=== PATIENT | male | born 1940 | race Caucasian/White ===

== ENCOUNTER 2019-07-25 07:48 | Day surgery (SDC) | payer MEDICARE, OTHER ==
--- NOTE | 2019-07-25 08:13 | PCM.PREANE ---
Preanesthetic Assessment - Procedure Proposed Procedure: left cataract extraction with IOL - Anesthesia/Transfusion/Family Hx Anesthesia History: No Prior Anesthesia Family History of Anesthesia Reaction: No Transfusion History: No Prior Transfusion(s) Intubation History: Unknown - Review of Systems General: No Symptoms Pulmonary: No Symptoms Cardiovascular: No Symptoms Gastrointestinal: No Symptoms Neurological: No Symptoms Other: Reports: Thyroid Problems - Physical Assessment NPO Status Date: 07/25/19 NPO Status Time: 22:00 Height: 1.83 m Weight: 108.862 kg ASA Class: 2 Mental Status: Alert & Oriented x3 Airway Class: Mallampati = 1 Dentition: Reports: Normal Dentition Thyro-Mental Finger Breadths: 3 Mouth Opening Finger Breadths: 4 ROM/Head Extension: Full Lungs: Clear to Auscultation, Normal Respiratory Effort Cardiovascular: Regular Rate, Regular Rhythm - Allergies Allergies/Adverse Reactions: Allergies Allergy/AdvReac Type Severity Reaction Status Date / Time No Known Allergies Allergy Verified 07/24/19 10:14 - Blood Blood Available: No - Anesthesia Plan Pre-Op Medication Ordered: None - Acknowledgements Anesthesia Type Planned: MAC Pt an Appropriate Candidate for the Planned Anesthesia: Yes Alternatives and Risks of Anesthesia Discussed w Pt/Guardian: Yes Pt/Guardian Understands and Agrees with Anesthesia Plan: Yes PreAnesthesia Questionnaire Cardiovascular History: Reports: Hypertension - HOME MEDS Home Medications: Home Meds Gluc/MSM/C/[place]/[place] [Joint Support Complex Softgel] 1 cap PO DAILY [History] Lactobacillus Acidophilus [Probiotic] 1 cap PO DAILY 07/24/19 [History] Levothyroxine [Synthroid] 100 mcg PO DAILY 07/24/19 [History] Multivit-Min/Folic/Vit K/Lycop [Men's Multivitamin Tablet] 1 tab PO DAILY [History] amLODIPine [Norvasc] 5 mg PO DAILY 07/24/19 [History] - CURRENT (IN HOUSE) MEDS Current Meds: Current Medications Brimonidine Tartrate (Alphagan 0.2% Ophth Soln) 0 ml EYELF ASDIRECTED ROB Stop: 07/25/19 23:00 Cefuroxime Sodium (Zinacef) 0 mg EYELF ASDIRECTED ROB Stop: 07/25/19 23:00 Lidocaine HCl (Xylocaine-Mpf 1%) 1 ml INJECT ASDIRECTED ROB Stop: 07/25/19 23:00 Phenylephrine HCl (Butch-Synephrine 2.5% Ophth Soln) 0 ml EYELF ASDIRECTED ROB Stop: 07/25/19 23:00 Pilocarpine HCl (Pilocar 4% Ophth Soln) 0 ml EYELF ASDIRECTED ROB Stop: 07/25/19 23:00 Polymyxin/Trimethoprim Sulfate (Polytrim Ophth Soln) 0 ml EYELF ASDIRECTED ROB Stop: 07/25/19 23:00 Tetracaine HCl (Tetracaine 0.5% Steri-Unit Dot) 0 ml EYEBOTH ASDIRECTED ROB Stop: 07/25/19 23:00 Tropicamide (Mydriacyl 1% Ophth Soln) 0 ml EYELF ASDIRECTED ROB Stop: 07/25/19 23:00
[2019-07-25] MEDS: Phenylephrine 2.5% Ophth Soln 2 ML Bot EYELF SCH ×6 (08:14→09:43)
[2019-07-25] MEDS: Tetracaine HCl/PF 0.5% 4 ML Bottle EYEBOTH SCH ×5 (08:16→09:50)
[2019-07-25] MEDS: Polymyxin B/Trimethoprim 10 ML Bottle EYELF SCH ×4 (08:17→10:07)
[2019-07-25] MEDS: Lidocaine 1% PF 2 ML SDV INJECT SCH ×2 (08:17→09:51)
[2019-07-25] MEDS: Brimonidine 0.2% Ophth Soln 5 ML Bottle EYELF SCH ×4 (08:17→10:07)
[2019-07-25] MEDS: Cefuroxime 10 MG/ML SYRINGE EYELF SCH ×2 (08:17→10:06)
[2019-07-25] MEDS: Pilocarpine 4% Ophth Soln 15 ML Bot EYELF SCH ×2 (08:17→10:07)
[2019-07-25] MEDS: Tropicamide 1% Ophth Soln 15 ML Bottle EYELF SCH ×4 (08:35→09:26)
== END 2019-07-25 10:18 | disposition home or self-care (01) ==
LOC: JD.SDS 07:48
PROVIDERS: ATTEND Ophthalmology
DX: H25.812 Combined forms of age-related cataract, left eye (principal); H21.81 Floppy iris syndrome; H21.42 Pupillary membranes, left eye; H02.834 Dermatochalasis of left upper eyelid; H02.831 Dermatochalasis of right upper eyelid; H16.223 Keratoconjunctivitis sicca, not specified as Sjogren's, bilateral; H31.092 Other chorioretinal scars, left eye; H35.342 Macular cyst, hole, or pseudohole, left eye; H35.372 Puckering of macula, left eye; I10 Essential (primary) hypertension; Z87.891 Personal history of nicotine dependence; Z79.899 Other long term (current) drug therapy
CPT/HCPCS: 66982; C1780; J0697; J2001